=== PATIENT | female | born 1995 | race Caucasian/White ===

== ENCOUNTER 2022-01-25 05:03 | Inpatient (IN) ==
[2022-01-25] MEDS ORDERED: miSOPROStoL 200 MCG TABLET RECTAL PRN (05:17)
[2022-01-25] MEDS ORDERED: CARBOPROST TROMETHAMINE 250 MCG/ML AMP IM PRN (05:17)
[2022-01-25] MEDS ORDERED: MEPERIDINE 50 MG/1 ML VIAL IV PRN (05:17)
[2022-01-25] MEDS ORDERED: OXYTOCIN/LR 20 UNIT/1,000 ML BAG IV ONE (05:17)
[2022-01-25] MEDS ORDERED: LACTATED RINGERS 250 ML IV ONE (05:17)
[2022-01-25] MEDS ORDERED: TRANEXAMIC ACID 1,000 MG in SODIUM CHLORIDE 0.9% 100 ML IV PRN (05:17)
[2022-01-25] MEDS ORDERED: LACTATED RINGERS 500 ML IV PRN (05:17)
[2022-01-25] MEDS ORDERED: METHYLERGONOVINE 0.2 MG/1 ML AMP IM PRN (05:17)
[2022-01-25 06:02] LABS: Basophils % 0.5 % (0.0-0.8); Eosinophils % 0.5 % (0.00-10.9); Hematocrit 32.3 VOL% (35.7-47.0); Hemoglobin 10.9 GM/DL (12.0-16.0); Immature Granulocytes % 1.1 %; Immature Granulocytes Absolute 0.09 #; Lymphocytes # 1.7 10*3/uL (1.4-4.0); Mean Corpuscular HGB Conc 33.7 GM/DL (32-36); Mean Corpuscular Volume 87.8 FL (87-102); Mean Platelet Volume 11.2 FL (9.6-12.0); Monocytes # 0.7 10*3/uL (0.11-0.8); Monocytes % 7.8 % (1.7-12.7); Neutrophils % 70.1 % (38.7-73.9); Platelet Count 250 T/CUMM (130-400); Red Blood Count 3.68 MC/CUMM (3.8-5.5); Red Cell Distribution Width 12.6 % (9.3-17.3); White Blood Count 8.5 T/CUMM (4-12)
[2022-01-25] MEDS: LACTATED RINGERS 1,000 ML IV SCH ×2 (06:13→17:44)
[2022-01-25 06:21] LABS: Alanine Aminotransferase 15 U/L (13-56); Albumin 2.1 G/DL (3.4-5.0); Alkaline Phosphatase 250 U/L (45-117); Aspartate Amino Transferase 15 U/L (0-37); Bilirubin,Total < 0.39 MG/DL (0.20-1.00); Blood Urea Nitrogen 6 MG/DL (7-18); Calcium 8.3 MG/DL (8.5-10.1); Carbon Dioxide 21 MMOL/L (21-32); Chloride 107 MMOL/L (98-107); Glucose 107 MG/DL (74-106); Osmolality,Calculated 270.8 MOS/KG (273-304); Potassium 3.7 MMOL/L (3.5-5.1); Sodium 137 MMOL/L (136-145); Total Protein 6.3 G/DL (6.4-8.2)
[2022-01-25] MEDS ORDERED: BUTORPHANOL 1 MG/ML VIAL IV PRN (14:53)
[2022-01-25] MEDS: ONDANSETRON 4 MG/2 ML VIAL IV PRN (15:22)
[2022-01-25] MEDS ORDERED: hydrOXYzine HCL 25 MG/1 ML VIAL IM PRN (17:00)
[2022-01-25] MEDS ORDERED: FAMOTIDINE 20 MG/2 ML VIAL IV ONE (17:00)
[2022-01-25] MEDS ORDERED: CITRIC ACID/SODIUM CITRATE 30 ML UDCUP PO ONE (17:00)
[2022-01-25] MEDS ORDERED: ePHEDrine 50 MG/ML VIAL IV PRN (17:00)
[2022-01-25] MEDS ORDERED: NALOXONE 0.4 MG/ML VIAL IV PRN (17:00)
[2022-01-25] MEDS ORDERED: diphenhydrAMINE 50 MG/1 ML VIAL IV PRN ×2 (17:00)
[2022-01-25] MEDS ORDERED: PROMETHAZINE 25 MG/1 ML VIAL IM ONE (17:30)
[2022-01-25] MEDS: fentaNYL 2 MCG/ROPIV 0.2% EPID 100 ML EPIDURAL SCH (18:00)
[2022-01-26] MEDS: fentaNYL 2 MCG/ROPIV 0.2% EPID 100 ML EPIDURAL SCH ×3 (00:53→15:43)
[2022-01-26] MEDS: LACTATED RINGERS 1,000 ML IV SCH ×3 (00:55→16:33)
[2022-01-26] MEDS ORDERED: OXYTOCIN/LR 20 UNIT/1,000 ML BAG IV SCH (07:00)
[2022-01-26] MEDS ORDERED: miSOPROStoL 200 MCG TABLET ONE (07:27)
[2022-01-26] MEDS ORDERED: TRANEXAMIC ACID 1,000 MG/10 ML VIAL ONE (07:27)
[2022-01-26] MEDS ORDERED: SODIUM CHLORIDE 0.9% 0 ML IV ONE (07:28)
[2022-01-26] MEDS ORDERED: METHYLERGONOVINE 0.2 MG/1 ML AMP ONE (07:28)
[2022-01-26] MEDS ORDERED: CARBOPROST TROMETHAMINE 250 MCG/ML AMP IM ONE (07:28)
[2022-01-26] MEDS: ONDANSETRON 4 MG/2 ML VIAL IV PRN (08:24)
[2022-01-26] MEDS ORDERED: CITRIC ACID/SODIUM CITRATE 30 ML UDCUP PO ONE (13:03)
[2022-01-26] MEDS ORDERED: ceFAZolin 3,000 MG in SYRINGE 1 EACH IV ONE (13:03)
[2022-01-26] MEDS ORDERED: FAMOTIDINE 20 MG/2 ML VIAL IV ONE (13:03)
[2022-01-26] MEDS ORDERED: buprenorphine HCL 0.3 MG/ML VIAL ONE (14:47)
[2022-01-26] MEDS ORDERED: LIDOCAINE MPF 2% /EPI 20 ML VIAL ONE (14:47)
[2022-01-26] MEDS ORDERED: fentaNYL 100 MCG/2 ML VIAL ONE ×2 (15:58→18:34)
[2022-01-26] MEDS ORDERED: CLINDAMYCIN INJ 900 MG/50 ML PREMIX IV ONE (18:30)
[2022-01-26] MEDS ORDERED: ONDANSETRON 4 MG/2 ML VIAL ONE (18:46)
[2022-01-26] MEDS ORDERED: PHENYLEPHRINE 1 MG/10 ML SYRINGE IV ONE ×2 (18:47→19:04)
[2022-01-26 18:49] LABS: Cord Arterial Blood HCO3 20.1 MMOL/L; Cord Venous Blood HCO3 21.2 MMOL/L; Cord Venous Blood PO2 19.8
[2022-01-26] MEDS ORDERED: ONDANSETRON 4 MG/2 ML VIAL IV PRN (18:50)
[2022-01-26] MEDS ORDERED: SIMETHICONE CHEW 80 MG TABLET PO PRN (18:50)
[2022-01-26] MEDS ORDERED: IBUPROFEN 800 MG TABLET PO PRN (18:50)
[2022-01-26] MEDS ORDERED: ACETAMINOPHEN 325 MG TABLET PO PRN (18:50)
[2022-01-26] MEDS ORDERED: MAGNESIUM HYDROXIDE SUSP 30 ML UDCUP PO PRN (18:50)
[2022-01-26] MEDS ORDERED: ACETAMINOPHEN INJ 1,000 MG/100 ML VIAL IV ONE (18:54)
[2022-01-26] MEDS ORDERED: oxyCODONE/ACETAMINOPHEN 5-325 MG TABLET PO PRN (18:56)
[2022-01-26] MEDS ORDERED: KETOROLAC 30 MG/1 ML VIAL IV PRN (18:58)
[2022-01-26] MEDS ORDERED: OXYTOCIN/LR 20 UNIT/1,000 ML BAG IV ONE (19:30)
[2022-01-26] MEDS ORDERED: LACTATED RINGERS 1,000 ML IV SCH (19:30)
[2022-01-26] MEDS ORDERED: RHO(D) IMMUNE GLOBULIN 300 MCG SYRINGE IM ONE (19:30)
[2022-01-26] MEDS: DOCUSATE SODIUM 100 MG CAPSULE PO SCH (21:49)
[2022-01-27] MEDS: oxyCODONE/ACETAMINOPHEN 5-325 MG TABLET PO PRN ×5 (00:15→23:58)
[2022-01-27] MEDS: CLINDAMYCIN INJ 900 MG/50 ML PREMIX IV SCH ×2 (01:02→08:36)
[2022-01-27] MEDS: IBUPROFEN 800 MG TABLET PO PRN ×4 (04:18→23:59)
[2022-01-27 06:29] LABS: Basophils % 0.1 % (0.0-0.8); Eosinophils % 0.1 % (0.00-10.9); Hemoglobin 9.1 GM/DL (12.0-16.0); Immature Granulocytes % 0.6 %; Immature Granulocytes Absolute 0.09 #; Lymphocytes # 1.2 10*3/uL (1.4-4.0); Mean Corpuscular HGB Conc 33.7 GM/DL (32-36); Mean Corpuscular Volume 89.4 FL (87-102); Mean Platelet Volume 11.9 FL (9.6-12.0); Monocytes % 6.8 % (1.7-12.7); Neutrophils % 84.4 % (38.7-73.9); Platelet Count 145 T/CUMM (130-400); Red Blood Count 3.02 MC/CUMM (3.8-5.5); Red Cell Distribution Width 12.8 % (9.3-17.3); White Blood Count 14.6 T/CUMM (4-12)
[2022-01-27] MEDS: MULTIVITAMIN (PRENATAL) TABLET PO SCH (08:35)
[2022-01-27] MEDS: DOCUSATE SODIUM 100 MG CAPSULE PO SCH ×3 (08:35→21:09)
[2022-01-27] MEDS: FERROUS SULFATE 325 MG TABLET PO SCH (08:36)
[2022-01-27] MEDS: LEVOTHYROXINE 50 MCG TABLET PO SCH (09:27)
[2022-01-27] MEDS ORDERED: ALUMINUM/MAGNES/SIMETH MAX STR 30 ML UDCUP PO PRN (19:24)
[2022-01-28] MEDS: LEVOTHYROXINE 50 MCG TABLET PO SCH (06:02)
[2022-01-28] MEDS: oxyCODONE/ACETAMINOPHEN 5-325 MG TABLET PO PRN ×2 (06:03→11:49)
[2022-01-28] MEDS: IBUPROFEN 800 MG TABLET PO PRN (06:04)
[2022-01-28 07:13] VITALS: BP 99/58
[2022-01-28] MEDS: FERROUS SULFATE 325 MG TABLET PO SCH (08:45)
[2022-01-28] MEDS: MULTIVITAMIN (PRENATAL) TABLET PO SCH (08:45)
[2022-01-28] MEDS: DOCUSATE SODIUM 100 MG CAPSULE PO SCH (08:45)
== END 2022-01-28 14:15 | disposition home or self-care (01) | DRG 788 ==
LOC: N.LDOUT 05:03 → N.LD 05:06 → N.OB 01-26 22:47
PROVIDERS: ADMIT Obstetrics & Gynecology; ATTEND Obstetrics & Gynecology
PROC: LDCSECT (ICD-10-PCS; 2022-01-26 18:00)